=== PATIENT | male | born 1945 | race Caucasian/White ===

== ENCOUNTER → 2020-01-21 | Outpatient (CLI) | payer MEDICARE | LOC: LAB 14:06 | PROVIDERS: ATTEND Surgery | DX: Z01.812 Encounter for preprocedural laboratory examination (principal); R22.1 Localized swelling, mass and lump, neck; Z20.828 Contact with and (suspected) exposure to other viral communicable diseases | CPT/HCPCS: U0003 ==

== ENCOUNTER 2020-01-24 11:34 | Day surgery (SDC) | payer MEDICARE ==
[~2020-01-24] VITALS: Ht 177.8 cm; Wt 145.1 kg
[~2020-01-24 11:34] MED LIST: HYDROmorphone 2 MG/ML VIAL IV PRN; IV RINGERS,LACTATED 1000ML 1,000 ML IV SCH; MORPHINE SULFATE 2 MG/ML VIAL. IV PRN; PROCHLORPERAZINE 10 MG/2 ML VIAL. IV PRN; fentaNYL PF VIAL 100 MCG/2 ML VIAL IV PRN
[2020-01-24] MEDS ORDERED: WARF-31 PO (12:10)
[2020-01-24] MEDS ORDERED: DULO60CA6 PO (12:10)
[2020-01-24] MEDS ORDERED: INSULIN LISPRO 100 UNIT/ML 3ML VIAL for OP,RR ONLY. SQ PRN (12:30)
[2020-01-24 12:44] LABS: PROTHROMBIN TIME PATIENT 13.3 SEC (11.7-14.0)
[2020-01-24] MEDS ORDERED: DEXAMETHASONE SOD PHOS 4 MG/ML VIAL ONE (13:21)
[2020-01-24] MEDS ORDERED: LIDOCAINE 2% PF 5 ML VIAL. ONE (13:21)
[2020-01-24] MEDS ORDERED: ONDANSETRON PF 4 MG/2 ML VIAL. ONE (13:21)
[2020-01-24] MEDS ORDERED: PROPOFOL 10 MG/ML (20ML) VIAL. IV ONE (13:21)
[2020-01-24] MEDS ORDERED: INSULIN LISPRO 100 UNIT/ML 3ML VIAL for OP,RR ONLY. SQ ONE (13:40)
[2020-01-24] MEDS ORDERED: LIDOCAINE 1%/EPI 1:100,000 20 ML VIAL. ONE (13:41)
[2020-01-24] MEDS ORDERED: SEVOFLURANE 31 TO 60 MINUTES. IH ONE (14:30)
[2020-01-24] MEDS ORDERED: PHENYLEPHRINE in 0.9% NACL PF 1 MG/10 ML SYRINGE. IV ONE (14:30)
--- NOTE | 2020-01-24 14:50 | PDOC4 ---
Operative Note Operative Note Operative Note: Preoperative Diagnosis: Right neck mass Postoperative Diagnosis: Same Procedure: Excision of right neck mass Surgeon: Boy Director Of [employer]: Atif MONTEJO Anesthesia: General EBL: 20 mL Specimen: Right neck mass to pathology, 6 X 3 cm Drains: None Complications: None Indication: The patient is a 74-year-old male presented with a persistent and bothersome right neck mass. He requests excision. The risks of surgery were discussed which include bleeding, infection, pain, nerve injury, anesthetic risk, recurrence, potential need for additional surgery procedure. He understands and would like to proceed. Description: The patient was taken to the operating room and placed supine in the operating table. General anesthesia was performed. The right neck was prepped with Betadine and draped in a standard surgical manner. An elliptical incision was made around the mass which was primarily subcutaneous in nature. T he overlying skin was included in the excision. Sharp dissection was used in the subcutaneous tissues to free the mass up from the surrounding structures. The mass was fully excised and the region measured 6 x 3 cm. The mass was sent to pathology for evaluation. Several small bleeding spots were controlled with cautery. Hemostasis was good. The subcutaneous tissue was approximated with 3- 0 Vicryl. Skin was closed with 4-0 Monocryl. A sterile dressing was applied. The patient tolerated the procedure well and was sent to the recovery room in stable condition. At the end of the case all counts were correct. ALLEY CANO MD Jan 24, 2020 14:50
--- NOTE | 2020-01-24 14:52 | DISCH ---
DISCHARGE INSTRUCTIONS Condition on Discharge Condition on Discharge: Stable Activity After Discharge Activity Instructions for Disc: Resume previous activity Diet after Discharge Diet after Discharge: Regular Wound Incision Care Wound/Incision Care: Other, see below (keep dressing clean and dry X 72 hours, may then remove and shower) Follow-Up Follow up with: Dr Cano in 2 weeks in the office, call for appt [phone] ALLEY CANO MD Jan 24, 2020 14:52
[2020-01-24] MEDS ORDERED: HYDR-3164 PO (15:21)
[2020-01-24 15:25] VITALS: BP 143/86
--- NOTE | 2020-01-27 18:07 | PATHOLOGY ---
[facility] Accession Number: [id number] . 01 Material submitted: . neck - RIGHT NECK MASS. Modifiers: right . 01 Clinical history: . NECK MASS . 02 Diagnosis: Skin and subcutaneous tissue, right neck mass: - Epidermal inclusion cyst, ruptured, with acute and chronic inflammation, focal foreign body giant cell reaction, and fibrosis of surrounding soft tissues. (JPM:luciana; 01/27/2020) QMS 01/27/2020 1522 Local . 02 Comment: There is no evidence of malignancy. (JPM:luciana; 01/27/2020) . 02 Electronically signed: . Félix Cano MD, Pathologist NPI- [id number] . 01 Gross description: . The specimen is received in formalin, labeled "Kamar Cai, right neck mass" and consists of an elliptical segment of skin measuring 3.9 x 2.0 x 1.9 cm. The central skin surface is raised. Sectioning reveals a white sinus tract with an abscess/cystic structure measuring approximately 2.0 cm. Powerhouse Tender sections are submitted in A1-A2. (SDY; 01/26/2020) SYU/SYU 01/27/2020 1521 Local . 02 Pathologist provided ICD-10: L72.0, L98.9, L90.5 . 02 CPT . 105420 Specimen Comment: A courtesy copy of this report has been sent to [phone], [phone] Specimen Comment: [phone] Specimen Comment: Report sent to / DR HESS Performed at: [address], [place], [place] [id number] MD Jordan Woodard MD Phone: [phone] Performed at: 02 [facility] [address] [place], [place] [id number] MD Félix Cano MD Phone: [phone]
== END 2020-01-24 16:00 | disposition home or self-care (01) ==
LOC: SURG 11:34
PROVIDERS: ATTEND Surgery
DX: R22.1 Localized swelling, mass and lump, neck (principal); L72.0 Epidermal cyst; L90.5 Scar conditions and fibrosis of skin; L98.9 Disorder of the skin and subcutaneous tissue, unspecified; I10 Essential (primary) hypertension; E78.00 Pure hypercholesterolemia, unspecified; G47.30 Sleep apnea, unspecified; E11.9 Type 2 diabetes mellitus without complications; E03.9 Hypothyroidism, unspecified; Z87.891 Personal history of nicotine dependence; Z79.899 Other long term (current) drug therapy; Z79.01 Long term (current) use of anticoagulants; Z98.890 Other specified postprocedural states; Z88.0 Allergy status to penicillin; Z72.89 Other problems related to lifestyle
CPT/HCPCS: 11426; 36415; 82962; 85610; A4461; J1100; J1815; J1956; J2370; J2405; J2704; 88304; J3490

== ENCOUNTER → 2020-02-15 | Outpatient (CLI) | payer MEDICARE ==
[2020-01-24 15:25] VITALS: BP 143/86
[~2020-02-15] MED LIST changes: +CONTRAST GIVEN. MC PRN; +DULO60CA6 PO; +HYDR-3164 PO; -HYDROmorphone 2 MG/ML VIAL IV PRN; +IOHEXOL 300 MG/ML 100ML VIAL. IV ONE; -IV RINGERS,LACTATED 1000ML 1,000 ML IV SCH; -MORPHINE SULFATE 2 MG/ML VIAL. IV PRN; -PROCHLORPERAZINE 10 MG/2 ML VIAL. IV PRN; +WARF-31 PO; -fentaNYL PF VIAL 100 MCG/2 ML VIAL IV PRN
--- NOTE | 2020-02-15 17:34 | RAD ---
CT THORAX W INDICATION: RESPIRATORY FAILURE W HYPOXIA Comparison: None. TECHNIQUE: Following the uneventful administration of intravenous contrast, 75 cc Omnipaque 350, axia l CT sections were obtained through the lungs and upper abdomen. Multiplanar reconstructions were obt ained. PQRS compliance statement: One or more of the following individualized dose reduction techniques were utilized for this examinat ion: 1. Automated exposure control 2. Adjustment of the mA and/or kV according to patient size 3. Use of iterative reconstruction technique FINDINGS: Lungs and Airways: No pulmonary mass or consolidation. Calcified pulmonary granulomas. No abnormality of the central airways. Pleura: The pleural spaces are normal. Heart and Mediastinum: The visualized thyroid is normal in size and attenuation. No axillary or supra clavicular lymphadenopathy. No mediastinal, hilar or retrocrural lymphadenopathy. Normal cardiac size . No pericardial effusion. Coronary artery atherosclerotic disease. Atherosclerosis of thoracic aorta . Abdomen: Cholelithiasis. Bones and Soft Tissues: Degenerative changes of the spine. Old rib fractures. IMPRESSION: 1. No pulmonary mass or consolidation. No thoracic lymphadenopathy. 2. Cholelithiasis. Electronically signed by: Ponce Bagley MD (02/15/2020 5:31 PM) [id number]
== END ==
LOC: CT 09:19
PROVIDERS: ATTEND Family Medicine
DX: J96.01 Acute respiratory failure with hypoxia (principal); K80.20 Calculus of gallbladder without cholecystitis without obstruction
CPT/HCPCS: 71260; Q9967

== ENCOUNTER → 2020-04-05 | Outpatient (CLI) | payer MEDICARE ==
[~2020-04-05] MED LIST changes: -CONTRAST GIVEN. MC PRN; -IOHEXOL 300 MG/ML 100ML VIAL. IV ONE; +ZOLPIDEM 5 MG TABLET. PO ONE
--- NOTE | 2020-04-06 11:48 | SLEEP ---
DATE OF STUDY: 04/05/2020 SLEEP STUDY ATTENDING PHYSICIAN: Lobo Francis MD REFERRING PHYSICIAN: Santy Modi MD The patient is a 74-year-old who weighs 225 pounds with a BMI of 33. The patient's Cameron score was 10. The patient underwent split night study performed at [facility]. During the night study, the patient spent 496 minutes in bed and slept for 255 minutes with a sleep efficiency of 51%. Sleep latency was 73 minutes with a REM latency of 13 minutes. Sleep architecture showed increased stage 1 sleep, normal stage 2 sleep, normal slow wave and normal REM sleep. EKG monitoring revealed an average heart rate of 81 beats per minute, no sustained arrhythmias observed. Occasional PVC's seen No PLMs seen. The patient was started on CPAP at a pressure of 5 cm water and titrated up to 12 cm water. However, the patient could not tolerate CPAP. As a result, the patient was switched to BiPAP at 16/12. The BiPAP pressure was increased all the way up to 30/24. At this final pressure, the patient slept for 26 minutes. The patient's AHI was still 64 per hour. The patient still had apneas as well as hypopneas. Oxygen saturations did fluctuate in the mid to high 80s. Optimum BiPAP pressure was not achieved. The patient did not tolerate a different mask. The patient had issue with compliance with devices. IMPRESSION: 1. Severe obstructive sleep apnea at an AHI of 32 per hour. 2. No significant periodic limb movements. RECOMMENDATIONS: 1. The patient failed to achieve a therapeutic CPAP/BiPAP pressure. The patient was unable to tolerate CPAP. The patient had also difficulty with different mask. 2. At this point, I would recommend the patient should be desensitized and should return to the sleep lab for BIPAP AutoSV titration. 3. Weight loss is strongly advised. 4. Avoid PORTFOLIO MGR depressants. 5. Cautioned regarding driving until symptoms of sleep apnea resolve with above recommendations. ADAM DIAZ MD DR: DARLENE/ruben JOB#: [id number] / [id number] ecc SANTY MODI MD, STEPHEN MD [facility]
== END ==
LOC: RT 18:31
PROVIDERS: ATTEND Internal Medicine Pulmonary Disease
DX: G47.33 Obstructive sleep apnea (adult) (pediatric) (principal)
CPT/HCPCS: 95810